=== PATIENT | female | born 1975 | race Caucasian/White ===

== ENCOUNTER 2023-04-03 13:26 | Emergency (ER) | payer OTHER, SELFPAY ==
[2023-04-03 13:30] VITALS: BP 144/90; PULSE 95; RESP 20; TEMP 36.5; O2SAT 98
--- NOTE | 2023-04-03 14:01 | ED.GENADULT ---
HPI - General Adult General Chief complaint: Ear Stated complaint: right ear Source: patient Mode of arrival: ambulatory Limitations: no limitations History of Present Illness HPI narrative: Patient presents for evaluation of decreased hearing on the right side since yesterday. She has chronic tinnitus, not worse as of late. She believes she has a cerumen impaction. She put an unknown drop in her ear without improvement thereafter. No drainage from the ears, sore throat, cough or other infectious symptoms. Related Data Home Medications Medication Instructions Recorded Confirmed bupropion HCl 300 mg 24 hr tablet, mg PO 04/03/23 extended release buspirone 10 mg tablet mg 04/03/23 ezetimibe 10 mg tablet mg 04/03/23 levothyroxine 50 mcg tablet mcg 04/03/23 (Synthroid) montelukast 10 mg tablet mg 04/03/23 norethindrone 1 mg-ethinyl tablet 04/03/23 estradiol 20 mcg (24)-iron 75 mg (4) tablet ([place] 24 Fe) olmesartan 20 mg tablet mg 04/03/23 omeprazole 20 mg capsule,delayed mg 04/03/23 release zolpidem 10 mg tablet mg 04/03/23 Allergies Allergy/AdvReac Type Severity Reaction Status Date / Time prednisone AdvReac Unknown Rash Verified 11/06/18 09:08 Review of Systems Review of Systems: CONSTITUTIONAL: Denies fever, chills, or sweats. EYES: Denies visual changes, redness, or discharge. ENT: Reports right sided ear hearing loss with mild discomfort. Reports chronic tinnitus without change in severity from her baseline. Denies rhinorrhea, congestion, or sore throat CARDIOVASCULAR: Denies chest pain, palpitations, or edema. RESPIRATORY: Denies cough or dyspnea. GASTROINTESTINAL: Denies abdominal pain, nausea, vomiting, or diarrhea. GENITOURINARY: Denies dysuria or hematuria. SKIN: Denies rash or itching. MUSCULOSKELETAL: Denies back pain, joint pain, or myalgia. NEUROLOGIC: Denies headache, numbness, dizziness, or weakness. PSYCHIATRIC: Denies anxiety or depression. [facility] Past Medical History Medical History GERD (gastroesophageal reflux disease) Hyperlipidemia Hypertension Insomnia Thyroid dysfunction Surgical History Surgical History No pertinent past surgical history Family History Family History Mother Family history non-contributory Social History Social History Substance use: never Living arrangements: with family Gender identity (if verbalized by the patient): Female Sexual Orientation (if Verbalized by the Patient): Straight or Heterosexual Spiritual care concerns: No Exam Narrative: GENERAL: Well-appearing, well-nourished, and in no acute distress. HEAD: Normocephalic, atraumatic. EYES: PERRLA and EOMI. ENT: Nares clear, no rhinorrhea or epistaxis. Mucous membranes moist. Oropharynx without tonsillar hypertrophy exudate or other lesions. Unable to visualize tympanic membranes on either side due to cerumen in the ear canals NECK: Supple. No adenopathy or masses. No carotid bruits or JVD CHEST: Clear to auscultation. No respiratory distress. No wheezes rales or rhonchi HEART: Regular rate and rhythm. No murmur heard. Normal peripheral pulses. ABDOMEN: Soft, nontender, nondistended, normal active bowel sounds. EXTREMITIES: Normal range of motion. No edema. SKIN: Warm, dry, no rash. NEURO: No focal deficits. Alert and oriented x3. PSYCH: Normal mood and affect. Course Course Emergency Course: This is a 47-year-old female who presented for evaluation of right-sided hearing loss that started yesterday. She had evidence of cerumen impaction on both sides. Both ear canals were lavaged with hydrogen peroxide and water. Is able to visualize the tympanic membranes bilaterally and they appeared intact but erythematou
== END 2023-04-03 14:05 | disposition home or self-care (01) ==
PROVIDERS: Emergency Provider Nurse Practitioner; PCP Internal Medicine
DX: H61.23 Impacted cerumen, bilateral (principal); K21.9 Gastro-esophageal reflux disease without esophagitis; E78.5 Hyperlipidemia, unspecified; I10 Essential (primary) hypertension
CPT/HCPCS: 69209; 99203; G0463